=== PATIENT | female | born 1995 | race Caucasian/White ===

== ENCOUNTER 2022-08-22 14:50 | Emergency (ER) | payer MEDICAID ==
[~2022-08-22] VITALS: Ht 160 cm; Wt 58.0 kg
[~2022-08-22 14:50] MED LIST: PEPCID
[2022-08-22 15:06] VITALS: BP 133/90
[2022-08-22] MEDS ORDERED: METOCLOPRAMIDE HCL 10MG/2ML VIAL IV ONE (17:30)
[2022-08-22] MEDS ORDERED: SODIUM CHLORIDE 0.9% 1,000 ML IV ONE (17:30)
[2022-08-22 18:02] LABS: BASOPHILS % 0.8 % (0.0-2.0); EOSINOPHILS % 1.8 % (0.0-5.0); HEMATOCRIT. 38.2 % (36.0-48.0); HEMOGLOBIN. 12.6 g/dL (12.0-16.0); LYMPHOCYTES % 24.6 % (20.0-50.0); MEAN CORPUSCULAR HEMOGLOBIN 28.4 pg (28.0-32.0); MEAN CORPUSCULAR VOLUME 86.1 fL (81.0-99.0); MEAN PLATELET VOLUME 8.9 fl (7.4-10.4); MONOCYTES % 5.6 % (2.0-8.0); NEUTROPHILS % 67.2 % (40.0-76.0); PLATELET 281 x1000/uL (130-400); RED BLOOD CELL COUNT 4.44 mill/uL (4.2-5.4); RED CELL DISTRIBUTION WIDTH 13.7 % (11.6-14.6)
[2022-08-22 18:14] LABS: CHLORIDE 104 mEq/L (98-107)
[2022-08-22] MEDS ORDERED: KETOROLAC 30MG/ML VIAL IV ONE (20:00)
[2022-08-22] MEDS ORDERED: METOCLOPRAMIDE HCL 10MG/2ML VIAL IV NR (21:45)
[2022-08-22] MEDS ORDERED: KETOROLAC 30MG/ML VIAL IV NR (21:45)
== END 2022-08-22 23:09 | disposition left against medical advice (07) ==
LOC: ER 14:50
DX: R51.9 Headache, unspecified (principal); R42 Dizziness and giddiness; R55 Syncope and collapse; R20.0 Anesthesia of skin
CPT/HCPCS: 36415; 80053; 82962; 85025; 93005; 96361; 96374; 96375; 99284; J1885; J2765; J7030; Z7610